=== PATIENT | male | born 1960 | race Hispanic/Latino ===

== ENCOUNTER 2020-03-01 12:11 | Emergency (ER) | payer OTHER ==
[2020-03-01 13:34] LABS: Absolute Lymphocytes (CBC) 1.3 K/uL (0.7-4.9); Basophils % 0.6 % (0-1.3); Lymphocytes % 16.4 % (15.3-44.8); MPV 8.7 fL (7.6-11.3); RBC Red Blood Cell Count 5.29 M/uL (4.33-5.43)
[2020-03-01 14:06] LABS: Urine Blood TRACE (NEG); Urine Glucose 2+ (NEG); Urine Protein NEGATIVE (NEG)
[2020-03-01] MEDS ORDERED: NA CHLORIDE 0.9% 500 ML ONE (14:20)
--- OUTSIDE RECORDS SUMMARY | 2020-03-01 14:30 | XMS REPORT ---
:1960 Author Organization [facility] t Address [address] [place] [address] Dr. Levin [address] [place] [id number] Care Team Providers Name Role Phone Unavailable Unavailable Unavailable Problems This patient has no known problems. Allergies, Adverse Reactions, Alerts This patient has no known allergies or adverse reactions. Medications This patient has no known medications. Procedures This patient has no known procedures. Results This patient has no known results.
[2020-03-01] MEDS ORDERED: INSULIN -REGULAR HUMAN 50 UNIT/0.5 ML ML ONE ×2 (15:03→17:38)
[2020-03-01 15:39] LABS: Albumin 3.8 g/dL (3.4-5.0); Bilirubin Direct 0.1 mg/dL (0-0.2); Bilirubin Total 0.3 mg/dL (0.2-1.0); Potassium 4.1 mmol/L (3.5-5.1)
--- NOTE | 2020-03-01 17:19 | RAD REPORT ---
EXAM DESCRIPTION: CT - Abdomen Pelvis W Contrast - 03/01/2020 5:09 pm CLINICAL HISTORY: ABD PAIN COMPARISON: No comparisons TECHNIQUE: Biphasic, helical CT imaging of the abdomen and pelvis was performed following 100 ml non -ionic IV contrast. No oral contrast administered. All CT scans are performed using dose optimization technique as appropriate and may include automated exposure control or mA/KV adjustment according to patient size. FINDINGS: No suspicious findings in the lung bases. Liver shows a mild diffuse fatty infiltration pattern no focal abnormality. Portal vein is normal. No pancreas or peripancreatic abnormality seen. Spleen is unremarkable. Gallbladder and biliary tree ar e also without suspicious finding. Gallstones can be occult on CT imaging. Symmetric renal function is seen with no hydronephrosis or suspicious renal mass. No pyelonephritis o r acute parenchymal process. A 3.9 centimeter cyst present upper pole left kidney. No suspicious amarilys acteristics. Additional small cysts seen lateral lower right kidney. Urinary bladder is fully contrac kathy limiting assessment. Right adrenal gland is negative. Left adrenal gland contains an 18 millimete r nodule. Benign adenoma is favored but a definitive diagnosis cannot be made due to the attenuation value. No dilated bowel loops or bowel wall thickening. GE junction is mildly prominent. Mild thickening is not excluded. Due to peristalsis, CT imaging has limited sensitivity. No dilated large or small bowel . The appendix is normal. There is moderate stool volume in the colon. Diverticulosis is mild. No div erticulitis. No free air, free fluid or inflammatory stranding. No hernia, mass or bulky lymphadenop athy. Disc and bony degenerative changes are present. No acute findings seen. IMPRESSION: Contrast-enhanced CT abdomen and pelvis imaging shows no acute or emergent finding. Nonacute findings detailed in the body of the report.
[2020-03-01 19:42] VITALS: TEMP 97.5
[2020-03-01 19:44] VITALS: BP 117/88; O2SAT 97
--- NOTE | 2020-03-06 14:41 | ER ---
Nurse's Notes [facility] Name: Tin Her Age: 59 yrs Sex: Male : 1960 Arrival Date: 03/01/2020 Time: 12:16 Bed 14 Private MD: Julia Gregory K Diagnosis: Elevated blood glucose level;Acute pancreatitis, unspecified Presentation: 03/01 12:45 Chief complaint: Patient states: I feel like I have to go every 15 minutes. I cannot dm5 quinchmy thirist. I am axious and heartburn. I haven't checked my sugar in 3 weeks because I ran out of strips and working a lot. Coronavirus screen: Proceed with normal triage. Patient denies a cough. Patient reports shortness of breath or difficulty breathing. Patient denies measured and/or subjective temperature greater than 100.4F prior to today's visit. Patient denies travel on a cruise ship or to a country the [facility] currently lists as an affected area. Patient denies contact with known and/or suspected case of COVID-19. Ebola Screen: Patient negative for fever greater than or equal to 101.5 degrees Fahrenheit, and additional compatible Ebola Virus Disease symptoms Patient denies exposure to infectious person. Patient denies travel to an Ebola-affected area in the 21 days before illness onset. No symptoms or risks identified at this time. Initial Sepsis Screen:. Risk Assessment: Do you want to hurt yourself or someone else? Patient reports no desire to harm self or others. Onset of symptoms was February 15, 2020. 12:45 Method Of Arrival: Ambulatory dm5 12:45 Acuity: CHU 3 dm5 14:00 Initial Sepsis Screen: Does the patient meet any 2 criteria? No. Patient's initial vc sepsis screen is negative. Does the patient have a suspected source of infection? No. Patient's initial sepsis screen is negative. Historical: - Allergies: 12:47 No Known Allergies; dm5 - PMHx: 12:47 Diabetes - NIDDM; dm5 - PSHx: 12:47 both shoulders; right knee; dm5 - Immunization history:: Adult Immunizations up to date, Flu vaccine is not up to date. - Social history:: Patient/guardian denies using alcohol, street drugs, The patient lives with family, Smoking status: Patient/guardian denies using tobacco, the patient reports quitting approximately 4 years ago. - Family history:: not pertinent. Screenin:00 Abuse screen: Denies threats or abuse. Nutritional screening: No deficits noted. vc Tuberculosis screening: No symptoms or risk factors identified. Fall Risk None identified. Assessment: 14:00 General: Appears in no apparent distress. comfortable, Behavior is calm, cooperative, vc appropriate for age. Pain: Denies pain. Neuro: Level of Consciousness is awake, alert, obeys commands, Oriented to person, place, time, situation, Appropriate for age. Cardiovascular: Capillary refill < 3 seconds Patient's skin is warm and dry. Respiratory: Airway is patent Respiratory effort is even, unlabored, Respiratory pattern is regular, symmetrical. GI: No signs and/or symptoms were reported involving the gastrointestinal system. : Reports burning with urination, urinary frequency. EENT: No signs and/or symptoms were reported regarding the EENT system. Derm: Skin is intact, is healthy with good turgor, Skin temperature is warm. Musculoskeletal: Circulation, motion, and sensation intact. Range of motion: intact in all extremities. 16:06 Reassessment: Received critical lab value, glucose 433. Reported to Dr Bo. 17:00 Reassessment: Patient appears in no apparent distress at this time. Patient and/or vc family updated on plan of care and expected duration. Pain level reassessed. Patient is alert, oriented x 3, equal unlabored respirations, skin warm/dry/pink. 18:00 Reassessment: Patient appears in no apparent distress at this time. Patient and/or vc family updated on plan of care and expected duration. Pain level reassessed. Patient is alert, oriented x 3, equal unlabored respirations, skin warm/dry/pink. Patient denies pain at this time. Patient states symptoms have improved. Vital Signs: 12:47 BP 126 / 92; Pulse 71; Resp 18; Temp 98; Pulse Ox 96% on R/A; Weight 86.18 kg; Height 5 dm5 ft. 6 in. (167.64 cm) (R); 14:12 BP 136 / 80; Pulse 67; Resp 16; Temp 98.1(TE); Pulse Ox 95% on R/A; mh5 15:00 BP 118 / 91; Pulse 65; Resp 15; Pulse Ox 96% on R/A; vc 16:03 BP 127 / 88; Pulse 65; Resp 15; Temp 97.5(TE); Pulse Ox 98% on R/A; mh5 17:00 BP 112 / 77; Pulse 59; Resp 16; Pulse Ox 98% on R/A; vc 18:00 BP 117 / 88; Pulse 57; Resp 16; Pulse Ox 97% on R/A; vc 12:47 Body Mass Index 30.67 (86.18 kg, 167.64 cm) dm5 12:47 pt reports he has lost 15 pounds in last 2 weeks dm5 ED Course: 12:16 Patient arrived in ED. mr 12:16 Julia Gregory MD is Private Physician. mr 12:47 Triage completed. dm5 13:06 Andrea Bo MD is Attending Physician. [facility] 13:30 Urine Dipstick--Ancillary (enter results) Sent. mh5 13:31 Basic Metabolic Panel Sent. 5 13:31 CBC with Diff Sent. mh5 13:31 Hepatic Function Sent. 5 13:31 Lipase Sent. 5 13:55 Report received from Emilie Kam RN. vc 14:00 Arm band placed on. vc 14:02 Brittany Riojas, NASREEN is Primary Nurse. vc 14:13 Inserted saline lock: 20 gauge in left antecubital area, using aseptic technique. Blood 5 collected. 14:13 Patient has correct armband on for positive identification. Bed in low position. Call [facility] light in reach. Warm blanket given. Pulse ox on. NIBP on. 18:02 Vero Zambrano MD is Attending Physician. ma2 19:19 Kevin Gerber MD is Referral Physician. [facility] 19:30 No provider procedures requiring assistance completed. IV discontinued, intact, vc bleeding controlled, No redness/swelling at site. Pressure dressing applied. Administered Medications: 14:11 Drug: Insulin Regular Human 10 units {Co-Signature: (Isabel Rodriguez RN).} Route: IVP; vc Site: left forearm; 16:57 Follow up: Response: No adverse reaction; Marked relief of symptoms vc 14:11 Drug: NS 0.9% 500 ml Route: IV; Rate: bolus; Site: left antecubital; vc 16:57 Not Given (Physician Discretion): Insulin Regular Human 10 units IVP once; Give only if vc FSBG still greater than 400 17:34 Drug: Insulin Regular Human 6 units {Co-Signature: mynor (Isabel Rodriguez RN).} Route: IVP; vc Site: left antecubital; Outcome: 19:17 Discharge ordered by MD. harvey 19:30 Patient left the ED. vc 19:30 Discharged to home ambulatory. vc 19:30 Condition: good 19:30 Discharge instructions given to patient, Instructed on discharge instructions, follow up and referral plans. Demonstrated understanding of instructions, follow-up care. Signatures: Dior Cabrales, RN RN dm5 Andrea Bo MD MD kdr Rivera, Mary mr Martinez, Maria [facility] Vero Zambrano MD MD ma2 Brittany Riojas RN RN vc Harris, Amy, RN RN ah Amy Harris RN ah
--- NOTE | 2020-03-06 14:42 | EDPHYS ---
Physician Documentation [facility] Name: Tin Her Age: 59 yrs Sex: Male : 1960 Arrival Date: 03/01/2020 Time: 12:16 Bed 14 Private MD: Julia Gregory K ED Physician Vero Zambrano HPI: 03/01 19:16 This 59 yrs old Male presents to ER via Ambulatory with complaints of Urinary ma2 Problem, High Blood Sugar. 19:16 Onset: The symptoms/episode began/occurred gradually, 2 day(s) ago. Associated signs ma2 and symptoms: Pertinent positives: None. Pertinent negatives: None. decreased urine output, diarrhea, hair loss. Current symptoms: In the emergency department the patient's symptoms are unchanged from the initial presentation. The patient has not experienced similar symptoms in the past. Historical: - Allergies: 12:47 No Known Allergies; dm5 - PMHx: 12:47 Diabetes - NIDDM; dm5 - PSHx: 12:47 both shoulders; right knee; dm5 - Immunization history:: Adult Immunizations up to date, Flu vaccine is not up to date. - Social history:: Patient/guardian denies using alcohol, street drugs, The patient lives with family, Smoking status: Patient/guardian denies using tobacco, the patient reports quitting approximately 4 years ago. - Family history:: not pertinent. ROS: 19:16 Constitutional: Negative for fever, chills, and weight loss, MS/Extremity: Negative for ma2 injury and deformity. 19:16 All other systems are negative. Exam: 19:16 Constitutional: This is a well developed, well nourished patient who is awake, alert, ma2 and in no acute distress. Head/Face: Normocephalic, atraumatic. Chest/axilla: Normal chest wall appearance and motion. Nontender with no deformity. No lesions are appreciated. Cardiovascular: Regular rate and rhythm with a normal S1 and S2. No gallops, murmurs, or rubs. Normal PMI, no JVD. No pulse deficits. Respiratory: Lungs have equal breath sounds bilaterally, clear to auscultation and percussion. No rales, rhonchi or wheezes noted. No increased work of breathing, no retractions or nasal flaring. Abdomen/GI: Soft, non-tender, with normal bowel sounds. No distension or tympany. No guarding or rebound. No evidence of tenderness throughout. MS/ Extremity: Pulses equal, no cyanosis. Neurovascular intact. Full, normal range of motion. Neuro: Awake and alert, GCS 15, oriented to person, place, time, and situation. Cranial nerves II-XII grossly intact. Motor strength 5/5 in all extremities. Sensory grossly intact. Cerebellar exam normal. Normal gait. Vital Signs: 12:47 BP 126 / 92; Pulse 71; Resp 18; Temp 98; Pulse Ox 96% on R/A; Weight 86.18 kg; Height 5 dm5 ft. 6 in. (167.64 cm) (R); 14:12 BP 136 / 80; Pulse 67; Resp 16; Temp 98.1(TE); Pulse Ox 95% on R/A; mh5 15:00 BP 118 / 91; Pulse 65; Resp 15; Pulse Ox 96% on R/A; vc 16:03 BP 127 / 88; Pulse 65; Resp 15; Temp 97.5(TE); Pulse Ox 98% on R/A; mh5 17:00 BP 112 / 77; Pulse 59; Resp 16; Pulse Ox 98% on R/A; vc 18:00 BP 117 / 88; Pulse 57; Resp 16; Pulse Ox 97% on R/A; vc 12:47 Body Mass Index 30.67 (86.18 kg, 167.64 cm) dm5 12:47 pt reports he has lost 15 pounds in last 2 weeks dm5 MDM: 18:01 Patient medically screened. ma2 19:16 Differential diagnosis: diabetes insipidus, DKA, hyperglycemia. Data reviewed: vital ma2 signs, nurses notes. Counseling: I had a detailed discussion with the patient and/or guardian regarding: the historical points, exam findings, and any diagnostic results supporting the discharge/admit diagnosis, the presence of at least one elevated blood pressure reading (>120/80) during this emergency department visit, the need for outpatient follow up. Response to treatment: the patient's symptoms have resolved after treatment. 03/01 12:59 Order name: Glucose, Ancillary Testing; Complete Time: 13:57 EDMS 03/01 13:06 Order name: Basic Metabolic Panel kdr 03/01 13:06 Order name: CBC with Diff kdr 03/01 13:06 Order name: Hepatic Function [facility] 03/01 13:06 Order name: Lipase [facility] 03/01 13:19 Order name: Urine Dipstick--Ancillary (enter results) em1 03/01 13:41 Order name: CBC with Automated Diff; Complete Time: 13:57 [facility] 03/01 19:18 Interpretation: Within normal limits: WBC 8.1; RBC 5.29; HGB 15.8; HCT 48.0; MCV 90.7; ma2 MCH 30.0; MCHC 33.0; PLT 270; RDW 13.0; MPV 8.7; ALIZA% 74.6; LYM% 16.4; MN% 7.1; EOSINOPHIL % 1.3; BASO% 0.6; NEUT A 6.0; LYMA 1.3; MNA 0.6; EOSA 0.1; BASOA 0.0. 03/01 14:08 Order name: Urine Dipstick-Ancillary; Complete Time: 16:15 [facility] 03/01 15:35 Order name: Glucose, Ancillary Testing; Complete Time: 16:15 [facility] 03/01 15:48 Order name: Basic Metabolic Panel; Complete Time: 17:07 [facility] 03/01 15:48 Order name: Liver (Hepatic) Function; Complete Time: 17:07 [facility] 03/01 16:12 Order name: Lipase; Complete Time: 17:07 [facility] 03/01 16:17 Order name: CT Abd/Pelvis - IV Contrast Only [facility] 03/01 16:48 Order name: Glucose, Ancillary Testing; Complete Time: 17:07 [facility] 03/01 13:06 Order name: Urine Dipstick-Ancillary (obtain specimen); Complete Time: 13:17 [facility] 03/01 13:06 Order name: IV Saline Lock; Complete Time: 13:31 [facility] 03/01 13:06 Order name: Labs collected and sent; Complete Time: 13:31 [facility] 03/01 16:12 Order name: FSBS; Complete Time: 16:32 [facility] 03/01 18:08 Order name: CT; Complete Time: 18:55 EDMS Administered Medications: 14:11 Drug: Insulin Regular Human 10 units {Co-Signature: mynor (Isabel Rodriguez RN).} Route: IVP; vc Site: left forearm; 16:57 Follow up: Response: No adverse reaction; Marked relief of symptoms vc 14:11 Drug: NS 0.9% 500 ml Route: IV; Rate: bolus; Site: left antecubital; vc 16:57 Not Given (Physician Discretion): Insulin Regular Human 10 units IVP once; Give only if vc FSBG still greater than 400 17:34 Drug: Insulin Regular Human 6 units {Co-Signature: mynor (Isabel Rodriguez RN).} Route: IVP; vc Site: left antecubital; Disposition: 03/01/20 19:17 Discharged to Home. Impression: Elevated blood glucose level, Acute pancreatitis, unspecified. - Condition is Stable. - Discharge Instructions: Acute Pancreatitis, [id number], Diabetes Mellitus and Food. - Medication Reconciliation Form, Thank You Letter, Antibiotic Education, Prescription Opioid Use form. - Follow up: Private Physician; When: Tomorrow; Reason: Recheck today's complaints, Continuance of care. Follow up: Kevin Gerber MD; When: Tomorrow; Reason: Continuance of care. Signatures: Dispatcher MedHo Dior Honeycutt RN RN dm5 Andrea Bo MD MD [facility] Vero Zambrano MD MD ma2 Brittany Riojas RN RN vc Amy Harris RN ah Corrections: (The following items were deleted from the chart) 19:18 19:18 WBC 8.1; RBC 5.29; HGB 15.8; HCT 48.0; MCV 90.7; MCH 30.0; MCHC 33.0; PLT 270; ma2 RDW 13.0; MPV 8.7; ALIZA% 74.6; LYM% 16.4; MN% 7.1; EOSINOPHIL % 1.3; BASO% 0.6; NEUT A 6.0; LYMA 1.3; MNA 0.6; EOSA 0.1; BASOA 0.0. ma2 19:19 19:18 Abnormal: WBC 8.1; RBC 5.29; HGB 15.8; HCT 48.0; MCV 90.7; MCH 30.0; MCHC 33.0; ma2 PLT 270; RDW 13.0; MPV 8.7; ALIZA% 74.6; LYM% 16.4; MN% 7.1; EOSINOPHIL % 1.3; BASO% 0.6; NEUT A 6.0; LYMA 1.3; MNA 0.6; EOSA 0.1; BASOA 0.0. ma2 19:19 19:17 03/01/2020 19:17 Discharged to Home. Impression: Elevated blood glucose level; ma2 Acute pancreatitis, unspecified. Condition is Stable. Forms are Medication Reconciliation Form, Thank You Letter, Antibiotic Education, Prescription Opioid Use. Follow up: Private Physician; When: Tomorrow; Reason: Recheck today's complaints, Continuance of care. ma2 19:30 19:19 03/01/2020 19:17 Discharged to Home. Impression: Elevated blood glucose level; vc Acute pancreatitis, unspecified. Condition is Stable. Discharge Instructions: Acute Pancreatitis, [id number], Diabetes Mellitus and Food. Forms are Medication Reconciliation Form, Thank You Letter, Antibiotic Education, Prescription Opioid Use. Follow up: Private Physician; When: Tomorrow; Reason: Recheck today's complaints, Continuance of care. Follow up: Kevin Gerber; When: Tomorrow; Reason: Continuance of care. ma2
== END 2020-03-01 19:30 | disposition home or self-care (01) ==
LOC: ER 12:11
DX: K85.90 Acute pancreatitis without necrosis or infection, unspecified (principal); E11.65 Type 2 diabetes mellitus with hyperglycemia
CPT/HCPCS: 85025; 80048; 36415; 82947 ×3; 80076; 81003; 83690; 74177; 99284; Q9967; J7040

== ENCOUNTER 2020-03-17 01:06 | Emergency (ER) | payer OTHER ==
--- OUTSIDE RECORDS SUMMARY | 2020-03-17 01:09 | XMS REPORT | Continuity of Care Document ---
:1960 Author Organization [facility] t Address [address] [place] [address] Dr. Levin [address] [place] [id number] Care Team Providers Name Role Phone Unavailable Unavailable Unavailable Problems This patient has no known problems. Allergies, Adverse Reactions, Alerts This patient has no known allergies or adverse reactions. Medications This patient has no known medications. Procedures This patient has no known procedures. Results This patient has no known results.
[2020-03-17] MEDS ORDERED: MORPHINE 4 MG/ML SYR ONE ×2 (01:39→02:20)
[2020-03-17] MEDS ORDERED: ONDANSETRON 4 MG/2 ML VIAL ONE (01:39)
[2020-03-17 01:56] LABS: Absolute Lymphocytes (CBC) 1.4 K/uL (0.7-4.9); Basophils % 0.4 % (0-1.3); Hematocrit 49.8 % (39.6-49.0); Lymphocytes % 16.4 % (15.3-44.8); MPV 7.7 fL (7.6-11.3); RBC Red Blood Cell Count 5.53 M/uL (4.33-5.43)
[2020-03-17 02:08] LABS: Bilirubin Direct 0.1 mg/dL (0-0.2); Bilirubin Total 0.4 mg/dL (0.2-1.0); Potassium 3.6 mmol/L (3.5-5.1); Protein, Total 8.5 g/dL (6.4-8.2)
[2020-03-17] MEDS ORDERED: KETOROLAC 30 MG/ML INJ ONE (02:44)
[2020-03-17] MEDS ORDERED: TAMSULOSIN 0.4 MG SR CAP ONE (02:44)
[2020-03-17] MEDS ORDERED: MEPERIDINE HCL 50 MG/ML ONE (03:22)
[2020-03-17 03:55] LABS: Urine Bacteria 20-50 /HPF (NONE SEEN); Urine RBC <5 /HPF (NONE SEEN)
[2020-03-17 03:56] LABS: Urine Culture Reflex Order REFLEXED; Urine Mucus 2+ /HPF (NONE SEEN)
--- NOTE | 2020-03-17 04:48 | EDPHYS ---
Physician Documentation [facility] Name: Tin Her Age: 59 yrs Sex: Male : 1960 Arrival Date: 03/17/2020 Time: 01:11 Bed 5 Private MD: Julia Gregory K ED Physician Eagle Valdivia HPI: 03/17 01:22 This 59 yrs old Male presents to ER via Ambulatory with complaints of Back rn Pain. 01:22 The patient presents with pain that is acute, with no known mechanism of injury. The rn symptoms are located in the low back. Onset: The symptoms/episode began/occurred today. The pain radiates to the abdomen. The problem was sustained from unknown cause. Modifying factors: The patient symptoms are alleviated by nothing, the patient symptoms are aggravated by nothing. Severity of symptoms: At their worst the symptoms were moderate, in the emergency department the symptoms are unchanged. The patient has not experienced similar symptoms in the past. The patient has been recently seen by a physician:. Reports left flank/back pain, radiates around to LLQ, reports urinary urgency but nothing comes out, no hx of kidney stones. No trauma. + recently seen and diagnosed with acute pancreatitis but states this is different and feels that problem is better. No vomiting or diarrhea. + nausea. . Historical: - Allergies: 01:20 No Known Allergies; sg - PMHx: 01:20 Diabetes - NIDDM; sg - PSHx: 01:20 both shoulders; right knee; sg - Immunization history:: Adult Immunizations up to date. - Social history:: Smoking status: Patient denies any tobacco usage or history of. - Family history:: not pertinent. - Hospitalizations: : No recent hospitalization is reported. ROS: 01:22 Constitutional: Negative for fever, chills, and weight loss, Eyes: Negative for injury, rn pain, redness, and discharge, Neck: Negative for injury, pain, and swelling, Cardiovascular: Negative for chest pain, palpitations, and edema, Respiratory: Negative for shortness of breath, cough, wheezing, and pleuritic chest pain, Abdomen/GI: + LLQ pain, + nausea Back: left flank pain MS/Extremity: Negative for injury and deformity, Skin: Negative for injury, rash, and discoloration, Neuro: Negative for headache, weakness, numbness, tingling, and seizure. Exam: 01:22 Constitutional: This is a well developed, well nourished patient who is awake, alert, government services professional to room, appears uncomfortable Head/Face: Normocephalic, atraumatic. Cardiovascular: Regular rate and rhythm. No pulse deficits. Respiratory: Speaking full sentences. No increased work of breathing, no retractions or nasal flaring. Abdomen/GI: soft, non-tender Back: No spinal tenderness. No costovertebral tenderness. Full range of motion. MS/ Extremity: Pulses equal, no cyanosis. Neurovascular intact. Full, normal range of motion. Equal circumference. Neuro: Awake and alert, GCS 15, oriented to person, place, time, and situation. Cranial nerves II-XII grossly intact. Motor strength 5/5 in all extremities. Sensory grossly intact. Cerebellar exam normal. Normal gait. Vital Signs: 01:24 BP 133 / 98; Pulse 78; Resp 16; Temp 98.4; Pulse Ox 99% on R/A; Weight 84.82 kg (R); jb4 Height 5 ft. 6 in. (167.64 cm) (R); Pain 8/10; 02:06 BP 128 / 82; Pulse 77; Resp 18; Pulse Ox 98% on R/A; jb4 03:45 BP 90 / 73; Pulse 72; Resp 16; Pulse Ox 96% on R/A; Pain 5/10; jb4 04:30 BP 90 / 61; Pulse 67; Resp 18; Pulse Ox 98% on R/A; Pain 2/10; jb4 04:57 BP 121 / 89; Pulse 67; Resp 16; Pulse Ox 98% on R/A; jb4 01:24 Body Mass Index 30.18 (84.82 kg, 167.64 cm) jb4 MDM: 01:16 Patient medically screened. rn 04:42 Differential diagnosis: Ureterolithiasis. Differential diagnosis: arthritis, rn Osteoarthritis sprain. Data reviewed: vital signs, nurses notes. Counseling: I had a detailed discussion with the patient and/or guardian regarding: the historical points, exam findings, and any diagnostic results supporting the discharge/admit diagnosis, lab results, radiology results, the need for outpatient follow up, to return to the emergency department if symptoms worsen or persist or if there are any questions or concerns that arise at home. Response to treatment: the patient's symptoms have markedly improved after treatment, and as a result, I will discharge patient. Special discussion: I discussed with the patient/guardian in detail that at this point there is no indication for admission to the hospital. It is understood, however, that if the symptoms persist or worsen the patient needs to return immediately for re-evaluation. ED course: Pt markedly improved, had 4mm stone at UVJ, now pain 1-2/10, smiling, has likely dropped into bladder, will dc home, told him just has to urinate it out. Will dc home with prn pain meds and nausea medication. . 04:50 ED course: Has active prescription for tylenol #4, will dc only with zofran. . rn 03/17 01:22 Order name: Basic Metabolic Panel; Complete Time: 02:32 rn 03/17 01:22 Order name: CBC with Diff; Complete Time: 02:32 rn 03/17 01:22 Order name: Hepatic Function; Complete Time: 02:32 rn 03/17 01:22 Order name: Lipase; Complete Time: 02:32 rn 03/17 01:22 Order name: Urine Microscopic Only; Complete Time: 04:29 rn 03/17 03:57 Order name: Urine Culture EDNC 03/17 01:22 Order name: IV Saline Lock; Complete Time: 01:37 rn 03/17 01:22 Order name: CT Stone Protocol rn 03/17 01:22 Order name: Labs collected and sent; Complete Time: 01:37 rn 03/17 01:22 Order name: Urine Dipstick-Ancillary (obtain specimen); Complete Time: 03:21 rn Administered Medications: 01:37 Drug: morphine 4 mg Route: IVP; Site: right antecubital; jd3 02:15 Follow up: Response: No adverse reaction; RASS: Restless (+1) jd3 01:37 Drug: Zofran (Ondansetron) 4 mg Route: IVP; Site: right antecubital; jd3 02:15 Follow up: Response: No adverse reaction jd3 02:15 Drug: morphine 4 mg Route: IVP; Site: right antecubital; jd3 02:40 Follow up: Response: No adverse reaction; Pain is decreased; RASS: Alert and Calm (0) jb4 02:42 Drug: Flomax 0.4 mg Route: PO; jb4 03:06 Follow up: Response: No adverse reaction jb4 02:42 Drug: TORadol 30 mg Route: IVP; Site: right antecubital; jb4 03:06 Follow up: Response: No adverse reaction; Temperature is unchanged jb4 03:21 Drug: Demerol 50 mg Route: IVP; Site: right antecubital; jb4 03:45 Follow up: Response: No adverse reaction; Pain is decreased; RASS: Alert and Calm (0) [facility] Disposition: 03/17/20 04:47 Discharged to Home. Impression: Hydronephrosis with renal and ureteral calculous obstruction - Resolved. - Condition is Stable. - Discharge Instructions: Kidney Stones, Dietary Guidelines to Help Prevent Kidney Stones. - Prescriptions for Zofran ODT 4 mg Oral tablet,disintegrating - place 1 tablet by TRANSLINGUAL route every 8 hours As needed; 20 tablet. - Medication Reconciliation Form, Thank You Letter, Antibiotic Education, Prescription Opioid Use, Work release form form. - Follow up: Private Physician; When: As needed; Reason: Recheck today's complaints, Re-evaluation by your physician. - Problem is new. - Symptoms have improved. Signatures: Dispatcher [employer] EDMS Aakash Hood RN NASREEN Eagle Valdivia MD MD rn Bryson, James, RN RN jb4 Neil Ayers RN RN jd3 Corrections: (The following items were deleted from the chart) 04:58 04:47 03/17/2020 04:47 Discharged to Home. Impression: Hydronephrosis with renal and jb4 ureteral calculous obstruction - Resolved. Condition is Stable. Forms are Medication Reconciliation Form, Thank You Letter, Antibiotic Education, Prescription Opioid Use. Follow up: Private Physician; When: As needed; Reason: Recheck today's complaints, Re-evaluation by your physician. Problem is new. Symptoms have improved. rn
--- NOTE | 2020-03-17 04:48 | ER ---
Nurse's Notes [facility] Name: Tin Her Age: 59 yrs Sex: Male : 1960 Arrival Date: 03/17/2020 Time: 01:11 Bed 5 Private MD: Julia Gregory K Diagnosis: Hydronephrosis with renal and ureteral calculous obstruction-Resolved Presentation: 03/17 01:18 Chief complaint: Patient states: pt states having back pain and feeling nervous, denies sg trauma or injury, denies N/V/D/Fever. Coronavirus screen: Proceed with normal triage. Ebola Screen: Patient negative for fever greater than or equal to 101.5 degrees Fahrenheit, and additional compatible Ebola Virus Disease symptoms Patient denies exposure to infectious person. Patient denies travel to an Ebola-affected area in the 21 days before illness onset. No symptoms or risks identified at this time. Initial Sepsis Screen: Does the patient meet any 2 criteria? No. Patient's initial sepsis screen is negative. Does the patient have a suspected source of infection? No. Patient's initial sepsis screen is negative. Risk Assessment: Do you want to hurt yourself or someone else? Patient reports no desire to harm self or others. Onset of symptoms was March 17, 2020. Care prior to arrival: None. Transition of care: patient was not received from another setting of care. 01:18 Method Of Arrival: Ambulatory 01:18 Acuity: CHU 3 sg Historical: - Allergies: 01:20 No Known Allergies; sg - PMHx: 01:20 Diabetes - NIDDM; sg - PSHx: 01:20 both shoulders; right knee; sg - Immunization history:: Adult Immunizations up to date. - Social history:: Smoking status: Patient denies any tobacco usage or history of. - Family history:: not pertinent. - Hospitalizations: : No recent hospitalization is reported. Screenin:25 Abuse screen: Denies threats or abuse. Nutritional screening: No deficits noted. jb4 Tuberculosis screening: No symptoms or risk factors identified. Fall Risk None identified. Assessment: 01:25 General: Appears in no apparent distress. uncomfortable, Behavior is calm, cooperative, jb4 appropriate for age. Pain: Complains of pain in left low back Pain radiates to left lower quadrant Pain currently is 8 out of 10 on a pain scale. Quality of pain is described as stabbing, Pain began 4 hours ago. Is continuous. Neuro: Level of Consciousness is awake, alert, obeys commands, Oriented to person, place, time, situation, Moves all extremities. Full function Gait is steady, Speech is normal, Facial symmetry appears normal, Pupils are PERRLA. Cardiovascular: Patient's skin is warm and dry. Respiratory: Airway is patent Respiratory effort is even, unlabored, Respiratory pattern is regular, symmetrical. GI: No signs and/or symptoms were reported involving the gastrointestinal system. : Reports pain in left flank(s). EENT: No signs and/or symptoms were reported regarding the EENT system. Derm: Skin is intact, Skin is pink, warm \\T\\ dry. Musculoskeletal: Circulation, motion, and sensation intact. Range of motion: intact in all extremities. 02:06 Reassessment: Patient appears in no apparent distress at this time. Patient and/or jb4 family updated on plan of care and expected duration. Pain level reassessed. Patient is alert, oriented x 3, equal unlabored respirations, skin warm/dry/pink. 03:06 Reassessment: Patient appears in no apparent distress at this time. Patient and/or jb4 family updated on plan of care and expected duration. Pain level reassessed. Patient is alert, oriented x 3, equal unlabored respirations, skin warm/dry/pink. PT states " the pain has not gotten better. If anything it has stayed the same or gotten worse." Provider notified, See MAR for orders. 03:45 Reassessment: Patient appears in no apparent distress at this time. Patient and/or jb4 family updated on plan of care and expected duration. Pain level reassessed. Patient is alert, oriented x 3, equal unlabored respirations, skin warm/dry/pink. PT now rates pain at 5/10 Patient states feeling better. 04:49 Reassessment: Patient appears in no apparent distress at this time. Patient and/or jb4 family updated on plan of care and expected duration. Pain level reassessed. Patient is alert, oriented x 3, equal unlabored respirations, skin warm/dry/pink. Patient states feeling better. Vital Signs: 01:24 BP 133 / 98; Pulse 78; Resp 16; Temp 98.4; Pulse Ox 99% on R/A; Weight 84.82 kg (R); jb4 Height 5 ft. 6 in. (167.64 cm) (R); Pain 8/10; 02:06 BP 128 / 82; Pulse 77; Resp 18; Pulse Ox 98% on R/A; jb4 03:45 BP 90 / 73; Pulse 72; Resp 16; Pulse Ox 96% on R/A; Pain 5/10; jb4 04:30 BP 90 / 61; Pulse 67; Resp 18; Pulse Ox 98% on R/A; Pain 2/10; jb4 04:57 BP 121 / 89; Pulse 67; Resp 16; Pulse Ox 98% on R/A; jb4 01:24 Body Mass Index 30.18 (84.82 kg, 167.64 cm) jb4 ED Course: 01:11 Patient arrived in ED. es 01:12 Julia Gregory MD is Private Physician. es 01:16 Eagle Valdivia MD is Attending Physician. rn 01:19 Triage completed. sg 01:19 Arm band placed on. sg 01:23 Sunny Santamaria, NASREEN is Primary Nurse. jb4 01:25 Patient has correct armband on for positive identification. Bed in low position. Call jb4 light in reach. Side rails up X 1. Pulse ox on. NIBP on. 01:37 Inserted saline lock: 20 gauge in right antecubital area, using aseptic technique. jd3 Blood collected. 02:10 CT Stone Protocol In Process Unspecified. EDMS 04:57 No provider procedures requiring assistance completed. IV discontinued, intact, jb4 bleeding controlled, No redness/swelling at site. Pressure dressing applied. Administered Medications: 01:37 Drug: morphine 4 mg Route: IVP; Site: right antecubital; jd3 02:15 Follow up: Response: No adverse reaction; RASS: Restless (+1) jd3 01:37 Drug: Zofran (Ondansetron) 4 mg Route: IVP; Site: right antecubital; jd3 02:15 Follow up: Response: No adverse reaction jd3 02:15 Drug: morphine 4 mg Route: IVP; Site: right antecubital; jd3 02:40 Follow up: Response: No adverse reaction; Pain is decreased; RASS: Alert and Calm (0) jb4 02:42 Drug: Flomax 0.4 mg Route: PO; jb4 03:06 Follow up: Response: No adverse reaction jb4 02:42 Drug: TORadol 30 mg Route: IVP; Site: right antecubital; jb4 03:06 Follow up: Response: No adverse reaction; Temperature is unchanged jb4 03:21 Drug: Demerol 50 mg Route: IVP; Site: right antecubital; jb4 03:45 Follow up: Response: No adverse reaction; Pain is decreased; RASS: Alert and Calm (0) jb4 Outcome: 04:47 Discharge ordered by . rn 04:57 Discharged to home ambulatory, with family. jb4 04:57 Condition: stable 04:57 Discharge instructions given to patient, Instructed on discharge instructions, follow up and referral plans. medication usage, Demonstrated understanding of instructions, follow-up care, medications, Prescriptions given X 1. 04:58 Patient left the ED. jb4 Signatures: Dispatcher [employer] Aakash Zeng RN RN sg Salyer, Edna es Nieto, Roman, MD MD rn Bryson, James, RN RN jbNeil Tucker RN RN jd3
[2020-03-17 05:06] VITALS: TEMP 98.4
[2020-03-17 05:10] VITALS: O2SAT 98
[2020-03-17 05:11] VITALS: BP 121/89
--- NOTE | 2020-03-17 11:14 | RAD REPORT ---
EXAM DESCRIPTION: CT - Stone Protocol - 03/17/2020 6:35 am CLINICAL HISTORY: Left flank/LLQ pain COMPARISON: 03/01/2020 TECHNIQUE: CT of the abdomen and pelvis without IV contrast. Evaluation of the solid organs and vasc ulature is suboptimal due to lack of IV contrast. FINDINGS: Lung Bases: The visualized lung bases are clear. Bones: Degenerative endplate spondylosis and facet arthropathy. Abdomen: Liver: The liver has normal size and decreased density. Gallbladder: No calcified gallstones. Spleen, Pancreas, and Adrenal Glands: The spleen, pancreas, and adrenal glands are unremarkable. Kidneys: 4 mm obstructing calculus at the left UVJ producing mild left hydroureter and hydronephrosis . Stable bilateral renal cysts. No right-sided hydronephrosis. Vasculature: Aortoiliac atherosclerosis. IVC is unremarkable. Stomach: The stomach and duodenum have normal course. Other: No free intraperitoneal air. No free fluid or lymphadenopathy. Pelvis: Bladder: Urinary bladder is otherwise unremarkable. Bowel: No dilated loops of large or small bowel. Scattered diverticula of the colon. Appendix: Normal appendix. Pelvis: Enlarged prostate. IMPRESSION: 1. There is a 0.4 cm obstructing calculus at the left UVJ producing mild left hydrourete r and hydronephrosis. 2. Hepatic steatosis. 3. Enlarged prostate. 4. Diverticulosis without evidence of acute diverticulitis. This exam was performed according to our departmental dose-optimization program, which includes autom ated exposure control, adjustment of the mA and/or kV according to patient size and/or use of iterati ve reconstruction technique. Electronically signed by: Maxwell Finch 03/17/2020 2:26 AM CDT Due to temporary technical issues with the PACS/Fluency reporting system, reports are being signed by the in house radiologist without review as a courtesy to ensure prompt reporting. The interpreting r adiologist is fully responsible for the content of the report
== END 2020-03-17 04:58 | disposition home or self-care (01) ==
LOC: ER 01:06
DX: N13.2 Hydronephrosis with renal and ureteral calculous obstruction (principal); E11.9 Type 2 diabetes mellitus without complications
CPT/HCPCS: 87088; 85025; 87086; 80048; 36415; 80076; 81015; 83690; 76377; 74176; 96375; 96374; 99284; J2175; J2405

== ENCOUNTER 2021-10-24 20:03 | Observation (INO) | payer OTHER ==
--- OUTSIDE RECORDS SUMMARY | 2021-10-24 20:08 | XMS REPORT | Continuity of Care Document ---
:1960 Author Organization [facility] t Address [address] [place] [address] Care Team Providers Name Role Phone Ashish Gregory Primary Care Physician Only, Db Test Attending Clinician Unavailable Trinidad HAND CLOTH CUTTER Attending Clinician TRINIDAD Attending Clinician Unavailable JOMAR Attending Clinician Unavailable Tommy HAND CLOTH CUTTER Attending Clinician TOMMY Attending Clinician Unavailable Nash DOWNEY, Ervin Attending Clinician Unavailable Wiliam WOODWARD Attending Clinician Unavailable Hortencia WYNN, Lamont Attending Clinician Unavailable Payers Payer Name Policy Type Policy Number Effective Date Expiration Date Elizabeth HAYES II [id number] 2016 00:00:00 Problems Condition Condition Condition Status Onset Resolution Last Treating Co mments Source Name Details Category Date Date Treatment Clinician Date Low Low Disease Active 2016-10 Univers testostero testostero 10-19 [place] Allergies, Adverse Reactions, Alerts Allergy Allergy Status Severity Reaction(s) Onset Inactive Treating Comm ents Source Name Type Date Date Clinician NO KNOWN Drug Active Univers ALLERGIE Class ity of [facility] [place] [facility] Social History Social Habit Start Date Stop Date Quantity Comments Source Exposure to Not sure [facility] SARS-CoV-2 (event) Medica l Branch [facility] [birth year] [facility] [place] [facility] Medical Branch Smoking Status Start Date Stop Date Source Former smoker 2017-08-19 00:00:00 2017-08-19 00:00:00 [facility] Medical Branch Medications Ordered Filled Start Stop Current Ordering Indication Dosage Frequency Signature Comments Components Source Medication Medication Date Date Medication? Clinician (SIG) Name Name Syringe Yes [id number] Use as Uni vers with 5-28 directed, ity of [place], [place] Dis[place], 1 mL 00 2 weeks Medica l 21 gauge x Branch 1" Syrg testosteron Yes [id number] 25mg 0.25 mL by Univers e cypionate 5-28 Intramuscu it y of 100 mg/mL 00:00: lar route [place] as injection 00 every 14 Medica l (fourteen) Branch days. Syringe Yes [id number] Use as Uni vers with 5-28 directed, ity of Needle, 00:00: [place] Disp, 1 mL 00 2 weeks Medica l 21 gauge x Branch 1" Syrg testosteron Yes [id number] 25mg 0.25 mL by Univers e cypionate 5-28 Intramuscu it y of 100 mg/mL 00:00: lar route [place] as injection 00 every 14 Medica l (fourteen) Branch days. Syringe Yes [id number] Use as Uni vers with 5-28 directed, ity of Needle, 00:00: [place] Disp, 1 mL 00 2 weeks Medica l 21 gauge x Branch 1" Syrg testosteron Yes [id number] 25mg 0.25 mL by Univers e cypionate 5-28 Intramuscu it y of 100 mg/mL 00:00: lar route [place] as injection 00 every 14 Medica l (fourteen) Branch days. Syringe Yes [id number] Use as Uni vers with 5-28 directed, ity of Needle, 00:00: [place] Disp, 1 mL 00 2 weeks Medica l 21 gauge x Branch 1" Syrg testosteron Yes [id number] 25mg 0.25 mL by Univers e cypionate 5-28 Intramuscu it y of 100 mg/mL 00:00: lar route [place] as injection 00 every 14 Medica l (fourteen) Branch days. Syringe Yes [id number] Use as Uni vers with 5-28 directed, ity of Needle, 00:00: [place] Disp, 1 mL 00 2 weeks Medica l 21 gauge x Branch 1" Syrg testosteron Yes [id number] 25mg 0.25 mL by Univers e cypionate - Intramuscu it y of 100 mg/mL 00:00: lar route [place] as injection 00 every 14 Medica l (fourteen) Branch days. Insulin Yes [id number] Use as Uni vers Syringe-Nee 7-31 directed ity of dle U-100 00:00: three [place] (BD INSULIN 00 times a Medic al SYRINGE month Branch MICROFINE) 1 mL 27 gauge x 5/8" Syrg Insulin Yes [id number] Use as Uni vers Syringe-Nee 7-31 directed ity of dle U-100 00:00: three [place] (BD INSULIN 00 times a Medic al SYRINGE month Branch MICROFINE) 1 mL 27 gauge x 5/8" Syrg Insulin Yes [id number] Use as Uni vers Syringe-Nee 7-31 directed ity of dle U-100 00:00: three [place] (BD INSULIN 00 times a Medic al SYRINGE month Branch MICROFINE) 1 mL 27 gauge x 5/8" Syrg Insulin Yes [id number] Use as Uni vers Syringe-Nee 7-31 directed ity of dle U-100 00:00: three [place] (BD INSULIN 00 times a Medic al SYRINGE month Branch MICROFINE) 1 mL 27 gauge x 5/8" Syrg Insulin Yes [id number] Use as Uni vers Syringe-Nee 7-31 directed ity of dle U-100 00:00: three [place] (BD INSULIN 00 times a Medic al SYRINGE month Branch MICROFINE) 1 mL 27 gauge x 5/8" Syrg amlodipine- 2016-10 Yes [id number] 1{capsu Take 1 Univers benazepril 0-03 le} capsule by ity of 10-40 mg 00:00: mouth [place] per capsule 00 daily. Medica l Branch atorvastati 2016-10 Yes [id number] 10mg Take 10 mg Univers n 10 mg 0-03 by mouth ity of tablet 00:00: daily. [place] 00 Medical Branch amlodipine- 2016-10 Yes [id number] 1{capsu Take 1 Univers benazepril 0-03 le} capsule by ity of 10-40 mg 00:00: mouth [place] per capsule 00 daily. [facility] atorvastati 2016-10 Yes [id number] 10mg Take 10 mg Univers n 10 mg 0-03 by mouth ity of tablet 00:00: daily. [facility] amlodipine- 2016-10 Yes [id number] 1{capsu Take 1 Univers benazepril 0-03 le} capsule by ity of 10-40 mg 00:00: mouth [place] per capsule 00 daily. [facility] atorvastati 2016-10 Yes [id number] 10mg Take 10 mg Univers n 10 mg 0-03 by mouth ity of tablet 00:00: daily. [facility] amlodipine- 2016-10 Yes [id number] 1{capsu Take 1 Univers benazepril 0-03 le} capsule by ity of 10-40 mg 00:00: mouth [place] per capsule 00 daily. [facility] atorvastati 2016-10 Yes [id number] 10mg Take 10 mg Univers n 10 mg 0-03 by mouth ity of tablet 00:00: daily. [place] [facility] amlodipine- 2016-10 Yes [id number] 1{capsu Take 1 Univers benazepril 0-03 le} capsule by ity of 10-40 mg 00:00: mouth [place] per capsule 00 daily. [facility] atorvastati 2016-10 Yes [id number] 10mg Take 10 mg Univers n 10 mg 0-03 by mouth ity of tablet 00:00: daily. [place] [facility] metFORMIN Yes [id number] 1000mg Take 1,000 Univers 1,000 mg 9-28 mg by ity of tablet 00:00: mouth [place] 00 daily. [facility] metFORMIN Yes [id number] 1000mg Take 1,000 Univers 1,000 mg 9-28 mg by ity of tablet 00:00: mouth [place] 00 daily. [facility] metFORMIN Yes [id number] 1000mg Take 1,000 Univers 1,000 mg 9-28 mg by ity of tablet 00:00: mouth [place] 00 daily. [facility] metFORMIN Yes [id number] 1000mg Take 1,000 Univers 1,000 mg 9-28 mg by ity of tablet 00:00: mouth [place] 00 daily. [facility] metFORMIN Yes [id number] 1000mg Take 1,000 Univers 1,000 mg 9-28 mg by ity of tablet 00:00: mouth [place] 00 daily. Medical Branch hydroCHLORO Yes [id number] 12.5mg Take 12.5 Univers thiazide 9-18 mg by ity of 12.5 mg 00:00: mouth [place] capsule 00 daily. Medical Branch atenolol 50 Yes [id number] 50mg Take 50 mg Univers mg tablet 9-18 by mouth 2 ity of 00:00: (two) [place] 00 times Medical daily. Branch hydroCHLORO Yes [id number] 12.5mg Take 12.5 Univers thiazide 9-18 mg by ity of 12.5 mg 00:00: mouth [place] capsule 00 daily. Medical Branch atenolol 50 Yes [id number] 50mg Take 50 mg Univers mg tablet 9-18 by mouth 2 ity of 00:00: (two) [place] 00 times Medical daily. Branch hydroCHLORO Yes [id number] 12.5mg Take 12.5 Univers thiazide 9-18 mg by ity of 12.5 mg 00:00: mouth [place] capsule 00 daily. Medical Branch atenolol 50 Yes [id number] 50mg Take 50 mg Univers mg tablet 9-18 by mouth 2 ity of 00:00: (two) [place] 00 times Medical daily. Branch hydroCHLORO Yes [id number] 12.5mg Take 12.5 Univers thiazide 9-18 mg by ity of 12.5 mg 00:00: mouth [place] capsule 00 daily. Medical Branch atenolol 50 Yes [id number] 50mg Take 50 mg Univers mg tablet 9-18 by mouth 2 ity of 00:00: (two) [place] 00 times Medical daily. Branch hydroCHLORO Yes [id number] 12.5mg Take 12.5 Univers thiazide 9-18 mg by ity of 12.5 mg 00:00: mouth [place] capsule 00 daily. Medical Branch atenolol 50 Yes [id number] 50mg Take 50 mg Univers mg tablet 9-18 by mouth 2 ity of 00:00: (two) [place] 00 times Medical daily. Branch Immunizations Ordered Filled Immunization Date Status Comments [facility] Branch e Immunization Name Name SARS-COV-2 COVID-19 2021-01-31 Completed Unive rsity of MODERNA VACCINE 00:00:00 [facility] SARS-COV-2 COVID-19 2021-01-31 Completed Unive rsity of MODERNA VACCINE 00:00:00 [facility] SARS-COV-2 COVID-19 2021-01-31 Completed Unive rsity of MODERNA VACCINE 00:00:00 [facility] SARS-COV-2 COVID-19 2021-01-31 Completed Unive rsity of MODERNA VACCINE 00:00:00 [facility] SARS-COV-2 COVID-19 2021-01-03 Completed Unive rsity of MODERNA VACCINE 00:00:00 [facility] SARS-COV-2 COVID-19 2021-01-03 Completed Unive rsity of MODERNA VACCINE 00:00:00 [facility] SARS-COV-2 COVID-19 2021-01-03 Completed Unive rsity of MODERNA VACCINE 00:00:00 [facility] SARS-COV-2 COVID-19 2021-01-03 Completed Unive rsity of MODERNA VACCINE 00:00:00 [facility] Procedures This patient has no known procedures. Encounters Start End Encounter Admission Attending Care Care Encounter Source Date/Time Date/Time Type Type Clinicians Facility Department ID 2021-06-23 2021-06-23 Laboratory Only, Ang Db Test [facility] 1.2.8 [id number] Univers 17:45:51 18:00:51 Only [facility] [id number] [facility] [id number] [place] as [place]?Blea [id number] [address] Medical Office Building 2021-06-23 2021-06-23 Outpatient R TRINIDAD [facility] [id number] Univers 18:00:00 18:00:00 DELROY hedrick [facility] [place] [facility] 2021-06-23 2021-06-23 Outpatient [facility] [id number] Univers 09:45:00 09:45:00 [id number] ity of [facility] [place] [facility] 2021-06-23 2021-06-23 Outpatient R JOMAR [facility] [id number] Univers 09:45:00 09:45:00 [facility]-05 2021-06-05 Laboratory Only, Ang Db Test [facility] 1.2.8 [id number] [id number] Univers 10:33:31 10:48:31 Only Kiya Sandoval [facility] [id number] ity [facility] [id number] Walter as [place]ver?Blea [id number] [facility] [address] Medical Office Building 2021-06-05 2021-06-05 Outpatient [facility] [id number] Univers 10:30:00 10:30:00 [id number] ity [facility] 2021-06-05 2021-06-05 Outpatient R TOMMY [facility] [id number] Univers 10:30:00 10:30:00 [facility]-06-05 2021-06-05 Telephone GIA Cao [id number] Univers 00:00:00 00:00:00 Judie DURÁN [id number] i ty of [facility] [id number] [place] as [id number] [address] 2021-01-31 2021-01-31 [facility] [id number] Univers 15:50:00 15:50:[address] [facility] 2021-01-31 2021-01-31 Outpatient R [facility] [id number] Univers 15:50:00 15:50:00 ity [facility] 2021-01-29 2021-01-29 Outpatient R CRISSY [facility] [id number] Univers 14:30:00 14:30:[address] [facility] 2021-01-03 2021-01-03 Outpatient [facility] [id number] Univers 17:30:00 17:30:00 ity [facility] 2020-12-23 2020-12-23 Outpatient [facility] [id number] Univers 16:45:00 [facility]:45:[facility] 2019-10-27 2019-10-27 Angela Burnett [facility] [id number] Univers 00:00:00 00:00:00 Gretel Garcia [id number] i ty of [place] Marcos [id number] Linda shearer Professio [phone] Ri dical nal 220 Branch Building Results This patient has no known results.
[2021-10-24 20:37] LABS: Absolute Lymphocytes (CBC) 1.5 K/uL (0.7-4.9); Hematocrit 46.4 % (39.6-49.0); Lymphocytes % 20.8 % (15.3-44.8); MPV 7.2 fL (7.6-11.3); RBC Red Blood Cell Count 5.19 M/uL (4.33-5.43)
--- NOTE | 2021-10-24 20:45 | RAD REPORT ---
EXAM DESCRIPTION: CT - Ct Stroke Brain Wo Cont - 10/24/2021 8:39 pm CLINICAL HISTORY: CONFUSED Headache, drowsiness, CVA symptomology COMPARISON: No comparisons TECHNIQUE: All CT scans are performed using dose optimization technique as appropriate and may inclu de automated exposure control or mA/KV adjustment according to patient size. FINDINGS: No intracranial hemorrhage, hydrocephalus or extra-axial fluid collection.No areas of brai n edema or evidence of midline shift. The paranasal sinuses and mastoids are clear. The calvarium is intact. IMPRESSION: No acute intracranial abnormality. The findings were discussed with Dr. Valdivia on 10/24/2021 at 8:40 p.m. by telephone.
[2021-10-24 20:48] LABS: Protime INR 1.03
--- NOTE | 2021-10-24 20:54 | RAD REPORT ---
EXAM DESCRIPTION: RAD - Chest Single View - 10/24/2021 8:48 pm CLINICAL HISTORY: stroke Chest pain. COMPARISON: Chest Pa And Lat (2 Views) dated 12/25/2017; CHEST SINGLE VIEW dated 05/17/2015; CHEST PA AND LAT 2 VIEW dated 11/07/2011; CHEST PA AND LAT 2 VIEW dated 10/11/2010 FINDINGS: Portable technique limits examination quality. Mild interstitial pulmonary edema. The heart is mildly enlarged in size. No displaced fractures. IMPRESSION: Mild CHF.
[2021-10-24 21:09] LABS: Urine Blood Negative (Negative); Urine Glucose Negative (Negative); Urine Protein Trace (Negative); Urine Specific Gravity 1.025 (1.005-1.030)
[2021-10-24 21:53] LABS: BUN Blood Urea Nitrogen 15 mg/dL (7-18); Bicarbonate 30 mmol/L (21-32); Glucose Level 121 mg/dL (74-106); Potassium 4.2 mmol/L (3.5-5.1); Sodium Level 137 mmol/L (136-145)
[2021-10-24 21:57] LABS: Urine Bacteria <20 /HPF (NONE SEEN); Urine RBC NONE SEEN /HPF (NONE SEEN); Urine Sperm PRESENT (NONE SEEN)
[2021-10-24] MEDS ORDERED: ASPIRIN 81 MG CHEWABLE TABLET ONE (22:23)
[2021-10-24] MEDS ORDERED: FOLIC ACID 5 MG/ML VIAL ONE (22:24)
[2021-10-24] MEDS ORDERED: NA CHLORIDE 0.9% 50 ML ONE (22:24)
--- NOTE | 2021-10-24 22:47 | ER ---
Nurse's Notes [facility] Name: Tin Her Age: 61 yrs Sex: Male : 1960 Arrival Date: 10/24/2021 Time: 20:08 Bed 2 Private MD: Diagnosis: Memory deficit following unspecified cerebrovascular disease Presentation: 10/24 20:16 Chief complaint: Spouse and/or significant other states: pt called her around 1930 very sm5 confused and could not remember anything that happened today. pt states he woke up around 7pm, took a shower and does not remember anything. a\T\ox3. Coronavirus screen: Vaccine status: Patient reports receiving the 2nd dose of the covid vaccine. Ebola Screen: No symptoms or risks identified at this time. Initial Sepsis Screen: Does the patient meet any 2 criteria? No. Patient's initial sepsis screen is negative. Does the patient have a suspected source of infection? No. Patient's initial sepsis screen is negative. Risk Assessment: Do you want to hurt yourself or someone else? Patient reports no desire to harm self or others. Onset of symptoms was October 24, 2021 at 19:00. 20:16 Method Of Arrival: Ambulatory [facility] 20:16 Acuity: CHU 2 sm5 Triage Assessment: 20:29 General: Appears in no apparent distress. Behavior is cooperative. Pain: Denies pain. sm5 Neuro: Level of Consciousness is awake, alert, memory loss. Oriented to person, place, time, Cast Iron Dipper are equal bilaterally Moves all extremities. Full function Gait is steady, Speech is normal, Facial symmetry appears normal, Pupils are PERRLA, Intact. Cardiovascular: No deficits noted. Capillary refill < 3 seconds Patient's skin is warm and dry. Respiratory: No deficits noted. Airway is patent Trachea midline Respiratory effort is even, unlabored. Historical: - PMHx: 20:28 Diabetes - NIDDM; Hypertensive disorder; sm5 - Immunization history:: Adult Immunizations Client reports receiving the 2nd dose of the Covid vaccine. - Social history:: Smoking status: Patient/guardian denies using tobacco, the patient reports quitting approximately 5 years ago, Patient/guardian denies using alcohol, street drugs. - Family history:: not pertinent. - Hospitalizations: : No recent hospitalization is reported. Screenin:54 The patient has not been NPO before screening. The patient is currently on the as6 following diet: regular The patient is alert, able to follow commands. The patient does not exhibit slurred or garbled speech The patient is not exhibiting difficulty speaking. The patient does not exhibit difficulty understanding words. The patient is able to swallow own secretions with no drooling or need for suction. Patient tolerated one teaspoon of water. No drooling, immediate coughing, gurgling, or clearing of the throat was noted. The patient tolerated 90mL of water. No drooling, immediate coughing, gurgling, or clearing of the throat was noted. The patient passed the bedside swallow screening. Oral medications may be given as ordered. Contact Physician for further diet orders. Provider notified of bedside swallow screening results: Eagle Valdivia MD. 23:26 Abuse screen: Denies threats or abuse. Denies injuries from another. Nutritional as6 screening: No deficits noted. Tuberculosis screening: No symptoms or risk factors identified. Fall Risk None identified. Assessment: 20:25 General: see triage assessment . as6 21:30 Reassessment: Patient and/or family updated on plan of care and expected duration. Pain as6 level reassessed. Patient is alert, oriented x 3, equal unlabored respirations, skin warm/dry/pink. pt AAO X4, able to ambulate to bathroom independently. Vital Signs: 20:16 BP 171 / 110; Pulse 74; Resp 18; Temp 98.1; Pulse Ox 98% ; Height 5 ft. 5 in. (165.10 sm5 cm); Pain 0/10; 21:00 BP 167 / 103; Pulse 73; Resp 20; Pulse Ox 98% on 2 lpm NC; st1 21:45 BP 141 / 105; Pulse 73; Resp 18; Pulse Ox 96% ; st1 20 00:21 Weight 83.8 kg (M); as6 06:15 BP 113 / 89; Pulse 134; Resp 18; Temp 98.6; Pulse Ox 96% on R/A; Pain 0/10; st1 00:21 Body Mass Index 30.74 (83.80 kg, 165.10 cm) as6 NIH Stroke Scale Scores: 10/24 20:32 NIHSS Score: 0 rn 20:45 NIHSS Score: 0 as6 ED Course: 20:08 Patient arrived in ED. kc5 20:18 Triage completed. sm5 20:19 Eagle Valdivia MD is Attending Physician. rn 20:25 Inserted saline lock: 18 gauge in right antecubital area, using aseptic technique. as6 Blood collected. 20:29 Elijah Cedeño, RN is Primary Nurse. as6 20:39 CT Stroke Brain w/o Contrast In Process Unspecified. EDMS 20:48 Stroke CXR 1 View In Process Unspecified. EDMS 21:55 Arm band placed on. as6 22:11 CT Head Angio In Process Unspecified. EDMS 22:11 CT Neck Angio In Process Unspecified. EDMS 22:45 Levar Collier DO is Hospitalizing Provider. rn 23:28 Bed in low position. Call light in reach. Side rails up X2. Adult w/ patient. Cardiac as6 monitor on. Pulse ox on. NIBP on. 10/25 00:22 No provider procedures requiring assistance completed. Patient admitted, IV remains in as6 place. Administered Medications: 10/24 22:34 Drug: Aspirin Chewable Tablet 324 mg Route: PO; as6 23:35 Follow up: Response: No adverse reaction as6 22:35 Drug: foLIC Acid 1 mg Route: IVPB; Site: right antecubital; as6 23:35 Follow up: Response: No adverse reaction; IV Status: Completed infusion; IV Intake: 99corl3 Intake: 23:35 IV: 50ml; Total: 50ml. as6 Outcome: 22:46 Decision to Hospitalize by Provider. rn 10/25 00:22 Admitted to ER Hold. Please see [facility] for further documentation. as6 Condition: stable 08:24 Patient left the ED. vg1 NIH Stroke Scale - NIH Stroke Score Date: 10/24/2021 Time: 20:32 Total Score = 0 1a. Level of Consciousness (LOC) - 0(Alert) 1b. Level of Consciousness (LOC) (Month \T\ Age) - 0(Both) 1c. LOC Commands (Open \T\ Closes Eyes/Solar Water Heater Installer) - 0(Both) 2. Best Gaze (Lateral Gaze Paresis) - 0(Normal) 3. Visual Field Loss - 0(No visual loss) 4. Facial Palsy - 0(Normal) 5a. Left Arm: Motor (10-second hold) - 0(No drift) 5b. Right Arm: Motor (10-second hold) - 0(No drift) 6a. Left Leg: Motor (5-second hold - always test supine) - 0(No drift) 6b. Right Leg: Motor (5-second hold - always test supine) - 0(No drift) 7. Limb Ataxia (finger/nose \T\ heel/hall - test with eyes open) - 0(Absent) 8. Sensory Loss (pinprick arms/legs/face) - 0(Normal) 9. Best Language: Aphasia (description/naming/reading) - 0(No aphasia) 10. Dysarthria (speech clarity - read or repeat words) - 0(Normal) 11. Extinction and Inattention (visual/tactile/auditory/spatial/personal) - 0(No abnormality) Initials: nasreen NIH Stroke Scale - NIH Stroke Score Date: 10/24/2021 Time: 20:45 Total Score = 0 1a. Level of Consciousness (LOC) - 0(Alert) 1b. Level of Consciousness (LOC) (Month \T\ Age) - 0(Both) 1c. LOC Commands (Open \T\ Closes Eyes/Solar Water Heater Installer) - 0(Both) 2. Best Gaze (Lateral Gaze Paresis) - 0(Normal) 3. Visual Field Loss - 0(No visual loss) 4. Facial Palsy - 0(Normal) 5a. Left Arm: Motor (10-second hold) - 0(No drift) 5b. Right Arm: Motor (10-second hold) - 0(No drift) 6a. Left Leg: Motor (5-second hold - always test supine) - 0(No drift) 6b. Right Leg: Motor (5-second hold - always test supine) - 0(No drift) 7. Limb Ataxia (finger/nose \T\ heel/hall - test with eyes open) - 0(Absent) 8. Sensory Loss (pinprick arms/legs/face) - 0(Normal) 9. Best Language: Aphasia (description/naming/reading) - 0(No aphasia) 10. Dysarthria (speech clarity - read or repeat words) - 0(Normal) 11. Extinction and Inattention (visual/tactile/auditory/spatial/personal) - 0(No abnormality) Initials: as6 Signatures: Dispatcher [employer] EDEagle Rodrigez MD MD rn Garcia, Victoria, RN RN 1 Elijah Cedeño RN RN as6 Ellen Lindo kc5 Karie South, NASREEN RN sm5 Lashae Amor, NASREEN RN st1 Corrections: (The following items were deleted from the chart) 10/24 20:29 20:28 Allergies: No Known Allergies; 5 5
--- NOTE | 2021-10-24 22:47 | EDPHYS ---
Physician Documentation [facility] Name: Tin Her Age: 61 yrs Sex: Male : 1960 Arrival Date: 10/24/2021 Time: 20:08 Bed 2 Private MD: ED Physician Eagle Valdivia HPI: 10/24 20:34 This 61 yrs old Male presents to ER via Ambulatory with complaints of POSS rn STROKE / MEMORY LOSS. 20:35 The patient presents with Patient reports does not remember what he did earlier during rn the day. states that he was very active today change the oil and was doing things around the house. Last time she noted him to be normal was before 5 PM when she went for work. Patient denies any focal neurological deficits, is ambulatory, no headache. Patient states has trouble remembering what he did today. Patient is insulin-dependent diabetic and states that he takes it irregularly. Today he took an extra dose of insulin without checking his sugar, patient does not even recall taking insulin today. No trauma or head injury recently. Does not feel ill. No chest pain or abdominal pain.. Onset: The symptoms/episode began/occurred today. Possible causes: unknown. Current symptoms: In the emergency department the patient's symptoms have improved. The patient has not experienced similar symptoms in the past. The patient has not recently seen a physician. Historical: - PMHx: 20:28 Diabetes - NIDDM; Hypertensive disorder; sm5 - Immunization history:: Adult Immunizations Client reports receiving the 2nd dose of the Covid vaccine. - Social history:: Smoking status: Patient/guardian denies using tobacco, the patient reports quitting approximately 5 years ago, Patient/guardian denies using alcohol, street drugs. - Family history:: not pertinent. - Hospitalizations: : No recent hospitalization is reported. ROS: 20:35 Constitutional: Negative for fever, chills, and weight loss, Eyes: Negative for injury, rn pain, redness, and discharge, ENT: Negative for injury, pain, and discharge, Neck: Negative for injury, pain, and swelling, Cardiovascular: Negative for chest pain, palpitations, and edema, Respiratory: Negative for shortness of breath, cough, wheezing, and pleuritic chest pain, Abdomen/GI: Negative for abdominal pain, nausea, vomiting, diarrhea, and constipation, Back: Negative for injury and pain, : Negative for injury, bleeding, discharge, and swelling, MS/Extremity: Negative for injury and deformity, Skin: Negative for injury, rash, and discoloration, Neuro: Negative for headache, weakness, numbness, tingling, and seizure. Exam: 20:35 Constitutional: This is a well developed, well nourished patient who is awake, alert, rn and in no acute distress. Ambulatory to room without an ataxic gait Head/Face: Normocephalic, atraumatic. Eyes: Pupils equal round and reactive to light, extra-ocular motions intact. Lids and lashes normal. Conjunctiva and sclera are non-icteric and not injected. Cornea within normal limits. Periorbital areas with no swelling, redness, or edema. ENT: No stridor Cardiovascular: Regular rate and rhythm. No pulse deficits. Respiratory: No increased work of breathing, no retractions or nasal flaring. Abdomen/GI: Soft, non-tender Skin: Warm, dry with normal turgor. Normal color with no rashes, no lesions, and no evidence of cellulitis. MS/ Extremity: Pulses equal, no cyanosis. Neurovascular intact. Full, normal range of motion. Equal circumference. Neuro: Awake and alert, GCS 15, oriented to person, place, time, and situation. Cranial nerves II-XII grossly intact. Motor strength 5/5 in all extremities. Sensory grossly intact. Cerebellar exam normal. Normal gait. 21:30 ECG was reviewed by the Attending Physician. rn Vital Signs: 20:16 BP 171 / 110; Pulse 74; Resp 18; Temp 98.1; Pulse Ox 98% ; Height 5 ft. 5 in. (165.10 sm5 cm); Pain 0/10; 21:00 BP 167 / 103; Pulse 73; Resp 20; Pulse Ox 98% on 2 lpm NC; st1 21:45 BP 141 / 105; Pulse 73; Resp 18; Pulse Ox 96% ; st1 10/25 00:21 Weight 83.8 kg (M); as6 06:15 BP 113 / 89; Pulse 134; Resp 18; Temp 98.6; Pulse Ox 96% on R/A; Pain 0/10; st1 00:21 Body Mass Index 30.74 (83.80 kg, 165.10 cm) as6 NIH Stroke Scale Scores: 10/24 20:32 NIHSS Score: 0 rn 20:45 NIHSS Score: 0 as MDM: 20:19 Patient medically screened. rn 20:32 ED course: NIH stroke scale 0. Patient only complaining of trouble remembering what he rn did today. Patient was ambulatory to room laughing and joking. Last known normal for was before 5 PM today when she left for work.. 20:41 ED course: CT head without acute findings per Dr. Raya. Patient with NIH stroke scale rn of 0. Not tPA candidate given stroke scale of 0 and only complaint of mild memory problems. Could be related more to metabolic such as glucose problem or more of encephalopathy due to uncontrolled blood pressure.. 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 We spoke about tPA and after our discussion and explanation we both decided together that tPA not indicated and risk is higher than reward in the situation especially now that he is trying to piece together what happened earlier in the day and NIH stroke scale is zero.. 22:42 Differential Diagnosis: electrolyte abnormality, intracranial bleed, volume depletion. rn 22:44 Data reviewed: vital signs, nurses notes, lab test result(s), EKG, radiologic studies, rn CT scan, and as a result, I will admit patient. Counseling: I had a detailed discussion with the patient and/or guardian regarding: the historical points, exam findings, and any diagnostic results supporting the discharge/admit diagnosis, lab results, radiology results, the need for further work-up and treatment in the hospital. Response to treatment: the patient's symptoms have markedly improved after treatment, and as a result, I will admit patient. Admission orders: after a detailed discussion of the patient's condition and case, the admit orders are written by me. ED course: Patient continues to improve, is starting a piece together what happened earlier in the day. Still grossly negative neurological exam. CT angio head and neck without acute findings per radiology read. Will admit to hospitalist service for neurological consult and MRI in the morning.. 10/24 20:30 Order name: Basic Metabolic Panel; Complete Time: 21:58 as6 10/24 20:30 Order name: CBC with Diff; Complete Time: 20:43 as6 10/24 20:30 Order name: Protime (+inr); Complete Time: 20:58 as6 01/19 20:30 Order name: Ptt, Activated; Complete Time: 20:58 10/24 20:32 Order name: COVID-19 SARS RT PCR (Document "Date of Onset" if Symptomatic); Complete rn Time: 21:58 10/24 20:32 Order name: Urine Microscopic Only; Complete Time: 21:58 rn 10/24 20:30 Order name: CT Stroke Brain w/o Contrast; Complete Time: 20:58 as6 10/24 20:43 Order name: Glucose, Ancillary Testing; Complete Time: 20:43 EDDC 10/24 21:09 Order name: Urine Dipstick-Ancillary; Complete Time: 21:11 EDMS 10/25 03:58 Order name: CBC with Automated Diff EDMS 10/25 04:14 Order name: Comprehensive Metabolic Panel EDMS 10/25 04:14 Order name: Lipid Profile EDMS 10/25 04:14 Order name: T4 Free EDMS 10/25 04:15 Order name: Thyroid Stimulating Hormone EDMS 10/24 20:30 Order name: Stroke CXR 1 View; Complete Time: 21:11 10/24 20:30 Order name: EKG; Complete Time: 20:31 10/24 20:30 Order name: Accucheck; Complete Time: 20:32 10/24 20:30 Order name: Cardiac monitoring; Complete Time: 20:32 10/24 20:30 Order name: EKG - Nurse/Tech; Complete Time: 20:57 10/24 20:30 Order name: IV Saline Lock; Complete Time: 20:32 10/24 20:30 Order name: Labs collected and sent; Complete Time: 20:32 10/24 20:30 Order name: NPO; Complete Time: 20:32 10/24 20:30 Order name: O2 Per Protocol; Complete Time: 20:32 10/24 20:30 Order name: O2 Sat Monitoring; Complete Time: 20:32 10/24 20:30 Order name: Stroke Swallow Screen; Complete Time: 20:57 10/24 20:32 Order name: Urine Dipstick-Ancillary (obtain specimen); Complete Time: 21:08 rn 10/24 20:43 Order name: CT Head Angio rn 10/24 20:43 Order name: CT Neck Angio rn EC:30 Rate is 72 beats/min. Rhythm is regular. QRS [place] is Normal. SD interval is normal. QRS rn interval is normal. QT interval is normal. No Q waves. T waves are Normal. No ST changes noted. Clinical impression: Normal ECG. Interpreted by me. Reviewed by me. Administered Medications: 22:34 Drug: Aspirin Chewable Tablet 324 mg Route: PO; as6 23:35 Follow up: Response: No adverse reaction as6 22:35 Drug: foLIC Acid 1 mg Route: IVPB; Site: right antecubital; as6 23:35 Follow up: Response: No adverse reaction; IV Status: Completed infusion; IV Intake: [id number] Disposition Summary: 10/24/21 22:46 Hospitalization Ordered Hospitalization Status: Observation rn Provider: Levar Collier rn Condition: Stable rn Problem: new rn Symptoms: have improved rn Bed/Room Type: Standard rn Location: [facility] ER HOLD(10/25/21 06:31) [facility] Room Assignment: ERHOLD-(10/25/21 06:31) [facility] Diagnosis - Memory deficit following unspecified cerebrovascular disease rn Forms: - Medication Reconciliation Form rn - SBAR form rn NIH Stroke Scale - NIH Stroke Score Date: 10/24/2021 Time: 20:32 Total Score = 0 1a. Level of Consciousness (LOC) - 0(Alert) 1b. Level of Consciousness (LOC) (Month \\T\\ Age) - 0(Both) 1c. LOC Commands (Open \\T\\ Closes Eyes/State'S Attorney) - 0(Both) 2. Best Gaze (Lateral Gaze Paresis) - 0(Normal) 3. Visual Field Loss - 0(No visual loss) 4. Facial Palsy - 0(Normal) 5a. Left Arm: Motor (10-second hold) - 0(No drift) 5b. Right Arm: Motor (10-second hold) - 0(No drift) 6a. Left Leg: Motor (5-second hold - always test supine) - 0(No drift) 6b. Right Leg: Motor (5-second hold - always test supine) - 0(No drift) 7. Limb Ataxia (finger/nose \\T\\ heel/hall - test with eyes open) - 0(Absent) 8. Sensory Loss (pinprick arms/legs/face) - 0(Normal) 9. Best Language: Aphasia (description/naming/reading) - 0(No aphasia) 10. Dysarthria (speech clarity - read or repeat words) - 0(Normal) 11. Extinction and Inattention (visual/tactile/auditory/spatial/personal) - 0(No abnormality) Initials: vernell NIH Stroke Scale - NIH Stroke Score Date: 10/24/2021 Time: 20:45 Total Score = 0 1a. Level of Consciousness (LOC) - 0(Alert) 1b. Level of Consciousness (LOC) (Month \\T\\ Age) - 0(Both) 1c. LOC Commands (Open \\T\\ Closes Eyes/State'S Attorney) - 0(Both) 2. Best Gaze (Lateral Gaze Paresis) - 0(Normal) 3. Visual Field Loss - 0(No visual loss) 4. Facial Palsy - 0(Normal) 5a. Left Arm: Motor (10-second hold) - 0(No drift) 5b. Right Arm: Motor (10-second hold) - 0(No drift) 6a. Left Leg: Motor (5-second hold - always test supine) - 0(No drift) 6b. Right Leg: Motor (5-second hold - always test supine) - 0(No drift) 7. Limb Ataxia (finger/nose \\T\\ heel/hall - test with eyes open) - 0(Absent) 8. Sensory Loss (pinprick arms/legs/face) - 0(Normal) 9. Best Language: Aphasia (description/naming/reading) - 0(No aphasia) 10. Dysarthria (speech clarity - read or repeat words) - 0(Normal) 11. Extinction and Inattention (visual/tactile/auditory/spatial/personal) - 0(No abnormality) Initials: as6 Signatures: Dispatcher [employer] EDDC Eagle Valdivia MD MD rn Attema, Lee, KNOT TIER-C KNOT TIER-Cla1 Tita Casanova, RN RN eb1 Elijah Cedeño RN RN as6 Karie South RN RN sm5 Corrections: (The following items were deleted from the chart) 20:29 20:28 Allergies: No Known Allergies; 5 sm5 23:10 22:46 Telemetry/MedSurg (observation) rn eb1 23:10 22:46 rn eb1 10/25 06:04 01/19 23:10 [facility] ER HOLD eb1 eb1 10/25 06:04 10/24 23:10 ERHOLD- eb1 eb1 10/25 06:31 06:04 Telemetry/MedSurg (observation) eb1 eb1 06:31 06:04 211 eb1 eb1
--- NOTE | 2021-10-24 23:41 | P.HP ---
Certification for Inpatient Patient admitted to: Observation With expected LOS: <2 Midnights Patient will require the following post-hospital care: None Practitioner: I am a practitioner with admitting privileges, knowledge of patient current condition, hospital course, and medical plan of care. Services: Services provided to patient in accordance with Admission requirements found in Title 42 Section 412.3 of the Code of Federal Regulations Patient History Date of Service: 10/24/21 Primary Care Provider: Dr. Eisenberg Reason for admission: AMS/amnesia History of Present Illness: 61-year-old male with history of diabetes mellitus type 2insulin- dependent, hypertension presents emergency department for altered mental status/amnesia. Patient reports that he was at home today did multiple tasks including cooking, changing oil in his car and did not remember anything, reports speaking to his while cooking and asking her what she was cooking, during HPI exam patient did forget that he was insulin-dependent diabetic as well. Patient presented to the emergency department symptoms had mostly resolved although he does have some difficulty remembering events of the day and does seem mildly confused. NIH is currently 0 no focal neurological deficits are noted. CT head brain without contrast as well as angio the head and neck were negative for acute findings no remarkable lab findings noted. ED provider wishes to admit to observation to obtain MRI to rule out CVA. Allergies No Known Allergies Allergy (Verified 09/07/15 12:44) Home Medications: Amlodipine Besylate/Benazepril [Lotrel 10-20 mg Capsule] 1 each PO DAILY 05/10/15 Atenolol [Tenormin] 100 mg PO DAILY 05/10/15 Atorvastatin Calcium [Lipitor] 10 mg PO BEDTIME 05/10/15 - Past Medical/Surgical History -: Diabetes type 2insulin-dependent -: Hypertension -: Hyperlipidemia -: Bilateral knee surgery -: Left shoulder surgery -: Trigger finger surgery Psychosocial/ Personal History: Lives at home with his - Family History Mother Notes: Aneurysm Father -: Hypertension - Social History Smoking Status: Former smoker Alcohol use: No CD- Drugs: No Caffeine use: Yes Place of Residence: Home Review of Systems 10-point ROS is otherwise unremarkable Neurological: Confusion, As per HPI Physical Examination - Physical Exam General: Alert, In no apparent distress, Oriented x3 HEENT: Atraumatic, PERRLA, Mucous membr. moist/pink, EOMI, Sclerae nonicteric Neck: Supple, 2+ carotid pulse no bruit, No LAD, Without JVD or thyroid abnormality Respiratory: Clear to auscultation bilaterally, Normal air movement Cardiovascular: Regular rate/rhythm, Normal S1 S2 Gastrointestinal: Normal bowel sounds, No tenderness Musculoskeletal: No tenderness Integumentary: No rashes Neurological: Normal gait, Normal speech, Normal strength at 5/5 x4 extr, Normal tone, Normal affect Lymphatics: No axilla or inguinal lymphadenopathy - Studies Laboratory Data (last 24 hrs) 10/24/21 21:04: Sodium 137, Potassium 4.2, BUN 15, Creatinine 0.81, Glucose 121 H 10/24/21 20:26: PT 11.8, INR 1.03, APTT 32.5 10/24/21 20:26: WBC 7.10, Hgb 15.8, Hct 46.4, Plt Count 291 Assessment and Plan - Plan Assessment: Retrograde amnesia/confusion rule out CVA Diabetes type 2insulin-dependent Hypertension Hyperlipidemia Plan: Retrograde amnesia/confusion rule out CVA: CT head brain without contrast negative for acute findings CT angio head and neck also negative. Patient had recent echocardiogram with range examiner will attempt to obtain records. MRI str miriam protocol as well as carotid Doppler ordered. Continue aspirin, statin, folic acid. Neurology consulted as well. Currently NIH 0, back to baseline although he does have mild confusion Diabetes type 2insulin-dependent: A [facility] Accu-Chek, sliding scale insulin. Hypertension: Continue home medications Hyperlipidemia: Continue atorvastatin. DVT PPX: Lovenox Code status: Full Discharge Plan: Home Plan to discharge in: 24 Hours - Advance Directives Does patient have a Living Will: No Does patient have a Durable POA for Healthcare: No - Code Status/Comfort Care Code Status Assessed: Yes (Full code) Critical Care: No Time Spent Managing Pts Care (In Minutes): 55
[2021-10-25] MEDS ORDERED: ONDANSETRON 4 MG/2 ML VIAL IV PRN (00:12)
[2021-10-25] MEDS ORDERED: ACETAMINOPHEN 500 MG TAB PO PRN (00:12)
[2021-10-25 00:40] VITALS: BMI 30.6
[2021-10-25 03:45] LABS: Absolute Lymphocytes (CBC) 1.8 K/uL (0.7-4.9); Hematocrit 42.2 % (39.6-49.0); MPV 7.2 fL (7.6-11.3); RBC Red Blood Cell Count 4.69 M/uL (4.33-5.43)
[2021-10-25 04:14] LABS: ALT/SGPT 27 U/L (12-78); AST/SGOT 13 U/L (15-37); Albumin 3.5 g/dL (3.4-5.0); Alkaline Phosphatase 64 U/L (45-117); BUN Blood Urea Nitrogen 17 mg/dL (7-18); Bicarbonate 32 mmol/L (21-32); Bilirubin Total 0.3 mg/dL (0.2-1.0); Glucose Level 87 mg/dL (74-106); HDL Cholesterol 43 mg/dL (40-60); LDL Cholesterol, Calculated 63 (<130); Potassium 3.8 mmol/L (3.5-5.1); Protein, Total 7.4 g/dL (6.4-8.2); Sodium Level 139 mmol/L (136-145)
--- NOTE | 2021-10-25 06:19 | P.PN ---
Date of Service: 10/25/21 Patient left AMA this morning. As I walked into room, he was standing at foot of bed and told me he was leaving. He stated he was feeling back to normal and did not want to wait for an MRI I explained that their is uncertainty of why he had the symptoms he presented with and an MRI may be beneficial He expressed understanding of leaving AMA and the risks involved, including . Patient signed AMA paperwork and left.
[2021-10-25 06:59] VITALS: BP 113/89
[2021-10-25] MEDS ORDERED: INSULIN -REGULAR HUMAN 50 UNIT/0.5 ML ML SQ SCH (07:30)
--- NOTE | 2021-10-25 08:35 | RAD REPORT ---
EXAM DESCRIPTION: US - CP - 10/25/2021 1:42 am CLINICAL HISTORY: AMS/Amnesia COMPARISON: Neck Angio dated 10/24/2021 TECHNIQUE: Real-time sonographic evaluation of both carotid systems was performed. Doppler interroga tion was performed with waveform tracing bilaterally. FINDINGS: Normal high resistance waveforms are noted in both external carotid arteries. The common c arotid arteries and internal carotid arteries show normal low resistance waveforms. Calcified plaque is present at both carotid bulbs and distal common carotid arteries. Peak systolic a nd end diastolic velocity values and the ICA/CCA ratios are in the non-hemodynamically significant ra nge. Antegrade flow seen in both vertebral arteries. IMPRESSION: Mild calcified plaque at the carotid bulbs and distal common carotid arteries. No evidence of a hemodynamically significant stenosis.
[2021-10-25 08:50] VITALS: TEMP 98.6; O2SAT 96
[2021-10-25] MEDS ORDERED: FOLIC ACID 1 MG TABLET PO SCH (09:00)
[2021-10-25] MEDS ORDERED: ASPIRIN EC 81 MG TAB PO SCH (09:00)
[2021-10-25] MEDS ORDERED: ENOXAPARIN 40 MG/0.4 ML SQ SCH (09:00)
--- NOTE | 2021-10-25 11:31 | RAD REPORT ---
EXAM DESCRIPTION: CT - Head angio - 10/25/2021 7:05 am CLINICAL HISTORY: 61 years Male CONFUSED COMPARISON: None. TECHNIQUE: Contiguous axial images obtained through the head and neck during the infusion of IV cont rast. Reformatted images obtained. 3-D MIP reformatted images obtained. NASCET criteria utilized fo r the evaluation of any stenotic lesions. This exam was performed according to our department optimization program which includes automated exp osure control, adjustment of the mA and/or kv according to patient size and/or use of iterative recon struction technique. FINDINGS: Mild mucosal thickening or mucous retention cyst in the right maxillary sinus. Mild atherosclerotic calcifications in the aortic arch. The aortic arch and proximal great vessels ap pear widely patent. The right vertebral artery appears widely patent. The left vertebral artery appears widely patent. A portion of the proximal right common carotid artery is not well-visualized secondary to artifact. T here is mild atherosclerotic plaquing at the right carotid bifurcation. The right common and internal carotid arteries appear widely patent. There is mild atherosclerotic plaquing at the left carotid bifurcation. The left common and internal carotid arteries appear widely patent. No aneurysms or vascular malformations are identified. There appears to be good filling of the larger intracranial arterial branches. The dural venous sinuses appear patent. IMPRESSION: Mild atherosclerotic changes. No hemodynamically significant stenotic lesions are identi fied. There appears to be good filling of the larger intracranial arterial branches. The findings were called to Dr. Eagle Valdivia at 10:42 PM central time. Electronically signed by: Pablo Lopez MD 10/24/2021 10:43 PM RV REPAIRER Due to temporary technical issues with the PACS/Fluency reporting system, reports are being signed by the in house radiologists without review as a courtesy to insure prompt reporting. The interpreting radiologist is fully responsible for the content of the report.
--- NOTE | 2021-10-25 11:41 | RAD REPORT ---
EXAM DESCRIPTION: CT - Neck Angio - 10/25/2021 7:05 am CLINICAL HISTORY: 61 years Male CONFUSED COMPARISON: None. TECHNIQUE: Contiguous axial images obtained through the head and neck during the infusion of IV cont rast. Reformatted images obtained. 3-D MIP reformatted images obtained. NASCET criteria utilized fo r the evaluation of any stenotic lesions. This exam was performed according to our department optimization program which includes automated exp osure control, adjustment of the mA and/or kv according to patient size and/or use of iterative recon struction technique. FINDINGS: Mild mucosal thickening or mucous retention cyst in the right maxillary sinus. Mild atherosclerotic calcifications in the aortic arch. The aortic arch and proximal great vessels ap pear widely patent. The right vertebral artery appears widely patent. The left vertebral artery appears widely patent. A portion of the proximal right common carotid artery is not well-visualized secondary to artifact. T here is mild atherosclerotic plaquing at the right carotid bifurcation. The right common and internal carotid arteries appear widely patent. There is mild atherosclerotic plaquing at the left carotid bifurcation. The left common and internal carotid arteries appear widely patent. No aneurysms or vascular malformations are identified. There appears to be good filling of the larger intracranial arterial branches. The dural venous sinuses appear patent. IMPRESSION: Mild atherosclerotic changes. No hemodynamically significant stenotic lesions are identi fied. There appears to be good filling of the larger intracranial arterial branches. The findings were called to Dr. Eagle Valdivia at 10:42 PM central time. Electronically signed by: Pablo Lopez MD 10/24/2021 10:43 PM SOIL SURVEYOR Due to temporary technical issues with the PACS/Fluency reporting system, reports are being signed by the in house radiologists without review as a courtesy to insure prompt reporting. The interpreting radiologist is fully responsible for the content of the report.
[2021-10-25] MEDS ORDERED: ATORVASTATIN 40 MG TAB PO SCH (21:00)
== END 2021-10-25 07:10 | disposition left against medical advice (07) ==
LOC: ER 20:03 → ERHOLD 23:47 → 2ND 10-25 06:24
PROVIDERS: ADMIT Hospitalist; ATTEND Hospitalist
DX: R41.2 Retrograde amnesia (principal); R41.0 Disorientation, unspecified; Z53.29 Procedure and treatment not carried out because of patient's decision for other reasons; E11.9 Type 2 diabetes mellitus without complications; I10 Essential (primary) hypertension; E78.5 Hyperlipidemia, unspecified; Z79.4 Long term (current) use of insulin; Z87.891 Personal history of nicotine dependence; Z20.822 Contact with and (suspected) exposure to COVID-19; Z82.49 Family history of ischemic heart disease and other diseases of the circulatory system
CPT/HCPCS: 96365; 93005; 85025 ×2; 80048; 36415; 85610; 80061; 82947; 85730; 84443; 84439; 80053; 70496; 70498; 70450; 71045; 93880; 99285; U0003; Q9967; G0378 ×2; 81003; 81015